=== PATIENT | male | born 1990 | race Asian ===

== ENCOUNTER 2016-08-31 15:39 | Emergency (ER) | payer MEDICAID ==
[~2016-08-31] VITALS: Ht 185.4 cm; Wt 80.1 kg
[2016-08-31 16:30] VITALS: BP 128/77
== END 2016-08-31 18:42 | disposition home or self-care (01) ==
LOC: ER 15:45
DX: F41.1 Generalized anxiety disorder (principal); G89.29 Other chronic pain; M54.5 Low back pain